=== PATIENT | female | born 1970 | race African-American/Black ===

== ENCOUNTER 2022-10-07 08:23 | Emergency (ER) | payer MEDICAID ==
[~2022-10-07] VITALS: Ht 170.2 cm; Wt 73.0 kg
[2022-10-07 08:20] VITALS: RESP 14
[2022-10-07 08:30] VITALS: PULSE 97; RESP 24; O2SAT 99
[2022-10-07] MEDS ORDERED: IPRATROPIUM BROMIDE (0.02%) 0.5MG/2.5ML NEB HHN STA (08:54)
[2022-10-07] MEDS ORDERED: ALBUTEROL (0.083%) 2.5MG/3ML NEB HHN STA (08:54)
[2022-10-07] MEDS ORDERED: MAGNESIUM 2 G PREMIX 50 ML IV STA (08:54)
[2022-10-07] MEDS ORDERED: METHYLPREDNISOLONE SOD SUCC 125MG/2ML (ACT-O-VIAL) IV STA (08:54)
[2022-10-07] MEDS ORDERED: MORPHINE SULFATE 4 MG/ML CPJ (NOT FOR IM USE) IV ONE (09:00)
[2022-10-07 09:06] LABS: CHLORIDE 100 mEq/L (98-107); INDEX HEMOLYSI 3 (1-3); INDEX ICTERIC 1 (1-4); INDEX LIPEMIC 1 (1-3); POTASSIUM 3.5 mEq/L (3.5-5.1); SODIUM 140 mEq/L (136-145)
[2022-10-07 09:10] LABS: BASOPHILS % 0.7 % (0.0-2.0); EOSINOPHILS % 1.6 % (0.0-5.0); HEMATOCRIT. 36.6 % (36.0-48.0); HEMOGLOBIN. 11.3 g/dL (12.0-16.0); LYMPHOCYTES % 26.1 % (20.0-50.0); MEAN CORPUSCULAR HEMOGLOBIN 25.5 pg (28.0-32.0); MEAN CORPUSCULAR HGB CONC 30.8 g/dL (31.0-37.0); MEAN CORPUSCULAR VOLUME 82.7 fL (81.0-99.0); MEAN PLATELET VOLUME 9.4 fl (7.4-10.4); MONOCYTES % 9.4 % (2.0-8.0); NEUTROPHILS % 62.2 % (40.0-76.0); PLATELET 248 x1000/uL (130-400); RED BLOOD CELL COUNT 4.43 mill/uL (4.2-5.4); RED CELL DISTRIBUTION WIDTH 15.6 % (11.6-14.6); WHITE BLOOD COUNT 7.2 x1000/uL (4.5-11.0)
[2022-10-07] MEDS ORDERED: METHYLPREDNISOLONE SOD SUCC 125MG VIAL IV NR (09:15)
[2022-10-07 09:17] LABS: ALANINE AMINOTRANSFERASE 15 IU/L (13-61); ALBUMIN 3.4 g/dL (3.4-5.0); ASPARTATE AMINOTRANSFERASE 18 IU/L (15-37); BILIRUBIN TOTAL 0.2 mg/dL (0.1-1.0); CALCIUM 8.9 mg/dL (8.5-10.1); CARBON DIOXIDE 37 mEq/L (21-32); CREATININE 0.6 mg/dL (0.6-1.3); GLUCOSE 129 mg/dL (70-105); NT PRO B-TYPE NATRIURETIC PEP 58 pg/mL (5-125); PROTEIN TOTAL 6.7 g/dL (6.0-8.3); TROPONIN I HIGH SENSITIVITY 4 ng/L (<54); UREA NITROGEN BLOOD 6 mg/dL (7-21)
[2022-10-07] MEDS ORDERED: IPRATROPIUM BROMIDE (0.02%) 0.5MG/2.5ML NEB ONE (11:14)
[2022-10-07] MEDS ORDERED: ALBUTEROL (0.083%) 2.5MG/3ML NEB ONE (11:14)
[2022-10-07 11:20] VITALS: PULSE 112; RESP 24; O2SAT 99
[2022-10-07 12:00] VITALS: BP 140/92; PULSE 90; RESP 16; TEMP 98.4
== END 2022-10-07 12:01 | disposition short-term general hospital (02) ==
LOC: ER 09:45
DX: J44.1 Chronic obstructive pulmonary disease with (acute) exacerbation (principal); I10 Essential (primary) hypertension; Z20.822 Contact with and (suspected) exposure to COVID-19
CPT/HCPCS: 80053; 83880; 85025; 84484; 36415; 71045; 93005; 94644; 96365; 96375; 99285; 87426; J3475; J2930; J2270; Z7610 ×3; C9803

== ENCOUNTER 2023-05-02 12:25 | Emergency (ER) | payer MEDICAID ==
[~2023-05-02] VITALS: Ht 162.6 cm; Wt 72.0 kg
[~2023-05-02 12:25] MED LIST: ALBU6.7H15 INH; AZEL205. BOTHNSTRLS; MELA1TAB51 PO; METO-396 PO; P20 MT
[2023-05-02] MEDS: IPRATROPIUM BROMIDE (0.02%) 0.5MG/2.5ML NEB HHN STA (13:00)
[2023-05-02] MEDS: ALBUTEROL (0.083%) 2.5MG/3ML NEB HHN STA (13:00)
[2023-05-02 13:20] VITALS: PULSE 108; RESP 24; O2SAT 99
[2023-05-02] MEDS: DEXAMETHASONE 10 MG/ML VIAL IV ONE (13:24)
[2023-05-02 13:30] LABS: BASOPHILS % 0.8 % (0.0-2.0); DIFFERENTIAL COMMENT 0; HEMATOCRIT. 36.7 % (36.0-48.0); HEMOGLOBIN. 10.9 g/dL (12.0-16.0); MEAN CORPUSCULAR HEMOGLOBIN 24.2 pg (28.0-32.0); MEAN CORPUSCULAR HGB CONC 29.8 g/dL (31.0-37.0); MEAN CORPUSCULAR VOLUME 81.3 fL (81.0-99.0); MEAN PLATELET VOLUME 9.3 fl (7.4-10.4); MONOCYTES % 7.4 % (2.0-8.0); NEUTROPHILS % 73.8 % (40.0-76.0); PLATELET 260 x1000/uL (130-400); RED BLOOD CELL COUNT 4.51 mill/uL (4.2-5.4); RED CELL DISTRIBUTION WIDTH 15.8 % (11.6-14.6); WHITE BLOOD COUNT 6.2 x1000/uL (4.5-11.0)
[2023-05-02 13:39] LABS: ALANINE AMINOTRANSFERASE < 7 IU/L (10-49); ALBUMIN 4.2 g/dL (3.2-4.8); ASPARTATE AMINOTRANSFERASE 17 IU/L (<34); BILIRUBIN TOTAL 0.3 mg/dL (0.1-1.0); CALCIUM 9.2 mg/dL (8.7-10.4); CARBON DIOXIDE 34 mEq/L (21-32); CHLORIDE 102 mEq/L (98-107); CREATININE 0.6 mg/dL (0.6-1.0); GLUCOSE 110 mg/dL (70-105); PROTEIN TOTAL 7.5 g/dL (6.0-8.3); SODIUM 141 mEq/L (136-145); UREA NITROGEN BLOOD 6 mg/dL (9-23)
[2023-05-02 13:57] LABS: TROPONIN I HIGH SENSITIVITY < 4 ng/L (3.0-34)
[2023-05-02] MEDS: MAGNESIUM/ALUMINUM HYDROXIDE/SIMETHICONE 30ML UDC PO ONE (14:11)
[2023-05-02] MEDS: KETOROLAC 15MG/ML VIAL IV ONE (14:11)
[2023-05-02] MEDS: FAMOTIDINE 20MG/2ML VIAL IV ONE (14:11)
[2023-05-02] MEDS: MORPHINE SULFATE 4 MG/ML INJ (FOR IV/IM USE) IV ONE (15:25)
[2023-05-02 17:30] VITALS: BP 137/98; PULSE 110; RESP 17; TEMP 98
== END 2023-05-02 17:50 | disposition short-term general hospital (02) ==
LOC: ER 12:25 → CANBEDREQ 22:54
DX: J44.1 Chronic obstructive pulmonary disease with (acute) exacerbation (principal); B02.29 Other postherpetic nervous system involvement; I10 Essential (primary) hypertension; Z20.822 Contact with and (suspected) exposure to COVID-19
CPT/HCPCS: 80053; 83880; 85025; 84484; 36415; 71045; 93005; 94644; 96374; 96375; 99285; 87426; J1100; J3490; J1885; J2270; Z7610 ×6

== ENCOUNTER 2024-04-20 14:06 | Inpatient (IN) | payer MEDICARE, MEDICAID ==
[~2024-04-20] VITALS: Ht 167.6 cm; Wt 54.4 kg
[~2024-04-20 14:06] MED LIST changes: +ALBU18HF2 IH; -ALBU6.7H15 INH; +AMLO5TAB88 MT; -AZEL205. BOTHNSTRLS; +AZEL205.2 BOTHNSTRLS; +FLUT12AE3 INH
[2024-04-20] MEDS: NALOXONE HCL 1MG/ML 2ML VIAL ONE (14:25)
[2024-04-20 14:43] LABS: BASOPHILS % 0.6 % (0.0-2.0); CHLORIDE 93 mEq/L (98-107); DIFFERENTIAL COMMENT 0; EOSINOPHILS % 3.9 % (0.0-5.0); HEMATOCRIT. 37.1 % (36.0-48.0); HEMOGLOBIN. 10.7 g/dL (12.0-16.0); MEAN CORPUSCULAR HEMOGLOBIN 25.5 pg (28.0-32.0); MEAN CORPUSCULAR HGB CONC 28.7 g/dL (31.0-37.0); MEAN CORPUSCULAR VOLUME 88.8 fL (81.0-99.0); MONOCYTES % 9.4 % (2.0-8.0); NEUTROPHILS % 58.1 % (40.0-76.0); PLATELET 195 x1000/uL (130-400); POTASSIUM 5.1 mEq/L (3.5-5.1); RED BLOOD CELL COUNT 4.17 mill/uL (4.2-5.4); RED CELL DISTRIBUTION WIDTH 14.9 % (11.6-14.6); SODIUM 138 mEq/L (136-145); WHITE BLOOD COUNT 5.7 x1000/uL (4.5-11.0)
[2024-04-20 14:45] LABS: CALCIUM 8.9 mg/dL (8.7-10.4)
[2024-04-20 14:47] LABS: CARBON DIOXIDE > 40 mEq/L (21-32)
[2024-04-20 14:49] LABS: CREATININE 0.8 mg/dL (0.6-1.0); GLUCOSE 147 mg/dL (70-105); UREA NITROGEN BLOOD 16 mg/dL (9-23)
[2024-04-20 14:51] LABS: TROPONIN I HIGH SENSITIVITY < 4 ng/L (3.0-34)
[2024-04-20] MEDS: IBUPROFEN 400MG TABLET PO ONE (17:23)
[2024-04-20 18:11] LABS: CLARITY URINE CLEAR (CLEAR); COLOR URINE YELLOW (YELLOW); GLUCOSE URINE NEGATIVE (NEGATIVE); KETONES URINE NEGATIVE (NEGATIVE); LEUKOCYTE ESTERASE URINE NEGATIVE (NEGATIVE); NITRITE URINE NEGATIVE (NEGATIVE); OCCULT BLOOD URINE NEGATIVE (NEGATIVE); PH URINE 5.5 (4.5-8.0); PROTEIN URINE 1+ (NEGATIVE); SPECIFIC GRAVITY URINE 1.016 (1.005-1.030); UROBILINOGEN URINE 0.2 E.U./dL (0.2-1.0)
[2024-04-20] MEDS ORDERED: ACETAMINOPHEN 325MG TABLET PO PRN (18:15)
[2024-04-20] MEDS ORDERED: IPRATROPIUM/ALBUTEROL 0.5-3(2.5)MG/3ML NEB HHN PRN (18:15)
[2024-04-20] MEDS ORDERED: ONDANSETRON HCL 4MG/2ML INJ IV PRN (18:15)
[2024-04-20] MEDS ORDERED: DOCUSATE SODIUM 100MG CAPSULE PO PRN (18:15)
[2024-04-20] MEDS ORDERED: MELATONIN 3MG TABLET PO PRN (18:15)
[2024-04-20 18:18] LABS: *AMPHETAMINES SCREEN URINE NEGATIVE (NEGATIVE); *BARBITURATES SCREEN URINE NEGATIVE (NEGATIVE); *BENZODIAZEPINES SCREEN URINE NEGATIVE (NEGATIVE); *COCAINE SCREEN URINE NEGATIVE (NEGATIVE); METHADONE URINE SCREEN NEGATIVE (NEGATIVE); OPIATES URINE SCREEN PRESUMPTIVE POSITIVE (NEGATIVE)
[2024-04-20 18:19] LABS: CANNABINOID URINE SCREEN PRESUMPTIVE POSITIVE (NEGATIVE); ECSTASY MDMA SCREEN URINE NEGATIVE (NEGATIVE); PHENCYCLIDINE URINE SCREEN NEGATIVE (NEGATIVE)
[2024-04-20 18:23] LABS: BACTERIA URINE TRACE; RBC URINE 0-2 /hpf (0-2); SQUAMOUS EPITHELIAL CELL URINE FEW /lpf (RARE/1+); WBC URINE 0-2 /hpf (0-2)
[2024-04-20 18:55] LABS: BG BASE EXCESS 13.7 mmol/L (-2.0-3.0); BG DEOXYHEMOGLOBIN 0.3 % (0.0-5.0); BG FRACTION INSPIRED OXYGEN 100; BG HCO3 ACT 47.6 mmol/L (21.0-28.0); BG METHEMOGLOBIN 0.2 % (0.5-1.5); BG OXYGEN SATURATION 99.7 % (94.0-98.0); BG OXYHEMOGLOBIN 96.5 % (94.0-98.0); BG PCO2 143.7 mmHg (32.0-45.0); BG PH 7.138 (7.350-7.450); BG PO2 206.3 mmHg (83.0-108.0); BG SAMPLE SITE RIGHT RADIAL; BG TOTAL HEMOGLOBIN 11.7 g/dL (12.0-16.0); BG VENT MODE MASK - NRB
[2024-04-20 19:41] LABS: IRON 35 ug/dL (50-170)
[2024-04-20 19:42] LABS: LDL CHOLESTEROL 53 mg/dL (5-100); TRIGLYCERIDE 62 mg/dL (0-150)
[2024-04-20 19:43] LABS: ALBUMIN 4.1 g/dL (3.2-4.8); CHOLESTEROL 131 mg/dL (<200); HDL CHOLESTEROL 54 mg/dL (>65)
[2024-04-20 19:44] LABS: PHOSPHORUS 5.3 mg/dL (2.5-4.9); PREALBUMIN 15.8 mg/dl (10.0-40.0); TOTAL IRON BINDING CAPACITY 200 ug/dl (250-425)
[2024-04-20 19:46] LABS: FERRITIN 39 ng/mL (10-291)
[2024-04-20 19:47] LABS: FOLIC ACID (FOLATE) SERUM 7.23 ng/mL (>5.38); T4 FREE 1.02 ng/dL (0.89-1.76); THYROID STIMULATING HORMONE 1.98 uIU/mL (0.55-4.78)
[2024-04-20 19:48] LABS: VITAMIN B12 SERUM 471 pg/mL (211-911)
[2024-04-20 20:00] VITALS: BP 122/85; PULSE 82; RESP 20; TEMP 35.9; O2SAT 96
[2024-04-20 20:19] LABS: ETHANOL BLOOD < 10 mg/dL (<10)
[2024-04-20] MEDS: FAMOTIDINE 20MG TABLET PO SCH (21:00)
[2024-04-20 22:00] VITALS: BP 122/85; PULSE 82; RESP 20; TEMP 35.9
[2024-04-20] MEDS: ALBUTEROL (0.083%) 2.5MG/3ML NEB HHN SCH (22:15)
[2024-04-20 22:16] VITALS: PULSE 89; RESP 16; O2SAT 95
[2024-04-20] MEDS: BUDESONIDE 0.5MG/2ML NEB HHN SCH (22:16)
[2024-04-20] MEDS ORDERED: AZEL205.2 NS (23:30)
[2024-04-20] MEDS ORDERED: AMLO5TAB88 PO (23:30)
[2024-04-20] MEDS ORDERED: PRED15SO74 MT (23:30)
[2024-04-20] MEDS ORDERED: METO-396 PO (23:30)
[2024-04-20] MEDS ORDERED: FLUT1AER5 INH (23:30)
[2024-04-20] MEDS ORDERED: ALBU4TAB6 MT (23:30)
[2024-04-20 23:38] LABS: CREATINE KINASE 122 IU/L (34-145); TROPONIN I HIGH SENSITIVITY 5 ng/L (3.0-34)
[2024-04-21] VITALS (9 sets, daily range): BP systolic 126–155; BP diastolic 59–96; PULSE 63–106; RESP 16–24; TEMP 35.9–36.9; O2SAT 96–100
[2024-04-21 06:04] LABS: HEMATOCRIT 36.5 % (36.0-48.0); MEAN CORPUSCULAR HEMOGLOBIN 25.9 pg (28.0-32.0); MEAN CORPUSCULAR VOLUME 86.3 fL (81.0-99.0); PLATELET 180 x1000/uL (130-400); RED BLOOD CELL COUNT 4.23 mill/uL (4.2-5.4); RED CELL DISTRIBUTION WIDTH 14.2 % (11.6-14.6); WHITE BLOOD COUNT 9.8 x1000/uL (4.5-11.0)
[2024-04-21 06:08] LABS: CALCIUM 9.5 mg/dL (8.7-10.4); CHLORIDE 91 mEq/L (98-107); POTASSIUM 4.5 mEq/L (3.5-5.1); SODIUM 138 mEq/L (136-145)
[2024-04-21 06:14] LABS: GLUCOSE 92 mg/dL (70-105); UREA NITROGEN BLOOD 11 mg/dL (9-23)
[2024-04-21 06:16] LABS: CREATINE KINASE 138 IU/L (34-145)
[2024-04-21 06:52] LABS: CARBON DIOXIDE > 40 mEq/L (21-32); CREATININE 0.5 mg/dL (0.6-1.0); TROPONIN I HIGH SENSITIVITY < 4 ng/L (3.0-34)
[2024-04-21] MEDS: METOPROLOL TARTRATE 25MG TABLET PO SCH (09:20)
[2024-04-21] MEDS: AMLODIPINE 5MG TABLET PO SCH (09:20)
[2024-04-21] MEDS: DEXT 5%/0.9% NACL 1,000 ML IV SCH (10:20)
[2024-04-21] MEDS ORDERED: NALOXONE HCL 1MG/ML 2ML VIAL IV ONE (10:30)
[2024-04-21] MEDS ORDERED: TRAMADOL 50MG TABLET PO PRN (10:45)
[2024-04-21] MEDS: ACETAMINOPHEN 325MG TABLET PO PRN (20:01)
[2024-04-22] VITALS (9 sets, daily range): BP systolic 110–168; BP diastolic 72–112; PULSE 85–101; RESP 18–20; TEMP 36.1–36.8; O2SAT 98–100
[2024-04-22 05:52] LABS: CHLORIDE 95 mEq/L (98-107); SODIUM 140 mEq/L (136-145)
[2024-04-22 05:53] LABS: CALCIUM 9.6 mg/dL (8.7-10.4); CARBON DIOXIDE 38 mEq/L (21-32)
[2024-04-22 05:58] LABS: CREATININE 0.5 mg/dL (0.6-1.0); GLUCOSE 104 mg/dL (70-105); UREA NITROGEN BLOOD 5 mg/dL (9-23)
[2024-04-22 06:24] LABS: HEMATOCRIT 39.4 % (36.0-48.0); HEMOGLOBIN 11.6 g/dL (12.0-16.0); MEAN CORPUSCULAR HEMOGLOBIN 24.9 pg (28.0-32.0); MEAN CORPUSCULAR HGB CONC 29.5 g/dL (31.0-37.0); MEAN CORPUSCULAR VOLUME 84.4 fL (81.0-99.0); PLATELET 171 x1000/uL (130-400); RED BLOOD CELL COUNT 4.66 mill/uL (4.2-5.4); RED CELL DISTRIBUTION WIDTH 14.5 % (11.6-14.6)
[2024-04-22] MEDS ORDERED: SODIUM CHLORIDE 0.9% 1,000 ML IV SCH (08:00)
[2024-04-22 14:56] LABS: BG BASE EXCESS 13.3 mmol/L (-2.0-3.0); BG CARBOXYHEMOGLOBIN 0.6 % (0.5-1.5); BG DEOXYHEMOGLOBIN 2.1 % (0.0-5.0); BG FRACTION INSPIRED OXYGEN 32; BG HCO3 ACT 40.6 mmol/L (21.0-28.0); BG METHEMOGLOBIN 0.3 % (0.5-1.5); BG OXYGEN SATURATION 97.9 % (94.0-98.0); BG PCO2 67.1 mmHg (32.0-45.0); BG PO2 95.9 mmHg (83.0-108.0); BG SAMPLE SITE RIGHT RADIAL; BG TOTAL HEMOGLOBIN 11.5 g/dL (12.0-16.0); BG VENT MODE NASAL CANNULA
[2024-04-22] MEDS: CLONIDINE 0.1MG TABLET PO PRN (17:40)
[2024-04-23] VITALS (11 sets, daily range): BP systolic 108–137; BP diastolic 61–87; PULSE 80–106; RESP 18–24; TEMP 36.5–36.7; O2SAT 98–100
[2024-04-23 06:23] LABS: CARBON DIOXIDE 39 mEq/L (21-32); CHLORIDE 95 mEq/L (98-107); POTASSIUM 3.7 mEq/L (3.5-5.1); SODIUM 139 mEq/L (136-145)
[2024-04-23 06:24] LABS: CALCIUM 9.3 mg/dL (8.7-10.4)
[2024-04-23 06:29] LABS: CREATININE 0.6 mg/dL (0.6-1.0); GLUCOSE 85 mg/dL (70-105); HEMATOCRIT 34.2 % (36.0-48.0); HEMOGLOBIN 10.1 g/dL (12.0-16.0); MEAN CORPUSCULAR HEMOGLOBIN 24.9 pg (28.0-32.0); MEAN CORPUSCULAR HGB CONC 29.6 g/dL (31.0-37.0); PLATELET 172 x1000/uL (130-400); RED BLOOD CELL COUNT 4.07 mill/uL (4.2-5.4); RED CELL DISTRIBUTION WIDTH 14.3 % (11.6-14.6); UREA NITROGEN BLOOD 7 mg/dL (9-23); WHITE BLOOD COUNT 5.8 x1000/uL (4.5-11.0)
[2024-04-23] MEDS ORDERED: FLUT12HF3 * (13:16)
[2024-04-23] MEDS ORDERED: METO25TA6 PO (13:16)
[2024-04-23] MEDS ORDERED: AMLO-287 MT (13:16)
[2024-04-24] VITALS: BP 110/74; PULSE 87; RESP 18; TEMP 36.7; O2SAT 100
[2024-04-24 01:23] VITALS: PULSE 90; RESP 20
== END 2024-04-24 02:05 | disposition home health service (06) | DRG 917 ==
LOC: ER 14:06 → EDBEDREQ 17:44 → EDBEDREQTM 17:44 → 8WST 20:44
PROVIDERS: ADMIT Hospitalist; ATTEND Hospitalist
DX: T40.2X1A Poisoning by other opioids, accidental (unintentional), initial encounter (principal); G92.8 Other toxic encephalopathy; J96.22 Acute and chronic respiratory failure with hypercapnia; E87.4 Mixed disorder of acid-base balance; D64.9 Anemia, unspecified; I10 Essential (primary) hypertension; F17.210 Nicotine dependence, cigarettes, uncomplicated; G89.29 Other chronic pain; Z99.81 Dependence on supplemental oxygen; Z79.899 Other long term (current) drug therapy; Z85.3 Personal history of malignant neoplasm of breast; Z90.12 Acquired absence of left breast and nipple; Y92.89 Other specified places as the place of occurrence of the external cause
CPT/HCPCS: 36415; 36600; 71045; 80048; 80061; 80305; 80320; 81003; 82040; 82375; 82550; 82607; 82728; 82746; 82805; 83036; 83540; 83550; 83735; 84100; 84134; 84439; 84443; 84484; 85025; 85027; 93005; 93970; 94070; 94640; 94664; 99285; J2310; J7626; G0480

== ENCOUNTER 2024-06-30 11:14 | Inpatient (IN) | payer MEDICARE, MEDICAID ==
[~2024-06-30] VITALS: Ht 157.5 cm; Wt 60.8 kg
[~2024-06-30 11:14] MED LIST changes: -ALBU18HF2 IH; -AZEL205.2 BOTHNSTRLS; -FLUT12AE3 INH; +FLUT12HF3 *; -MELA1TAB51 PO; -METO-396 PO; +METO25TA6 PO; -P20 MT
[2024-06-30] MEDS: TETRACAINE 0.5% OPHTH DROPS 4ML BOTHEYE ONE (11:45)
[2024-06-30] MEDS: FLUORESCEIN SODIUM 1MG/STRIP BOTHEYE ONE (11:45)
[2024-06-30 12:06] LABS: BASOPHILS % 1.1 % (0.0-2.0); EOSINOPHILS % 4.7 % (0.0-5.0); HEMATOCRIT. 36.9 % (36.0-48.0); HEMOGLOBIN. 11.3 g/dL (12.0-16.0); LYMPHOCYTES % 23.5 % (20.0-50.0); MEAN CORPUSCULAR HEMOGLOBIN 25.4 pg (28.0-32.0); MEAN CORPUSCULAR HGB CONC 30.7 g/dL (31.0-37.0); MEAN CORPUSCULAR VOLUME 82.8 fL (81.0-99.0); MEAN PLATELET VOLUME 9.3 fl (7.4-10.4); MONOCYTES % 9.9 % (2.0-8.0); NEUTROPHILS % 60.8 % (40.0-76.0); PLATELET 199 x1000/uL (130-400); RED BLOOD CELL COUNT 4.45 mill/uL (4.2-5.4); RED CELL DISTRIBUTION WIDTH 13.3 % (11.6-14.6); WHITE BLOOD COUNT 5.9 x1000/uL (4.5-11.0)
[2024-06-30 12:11] LABS: CARBON DIOXIDE 37 mEq/L (21-32); CHLORIDE 97 mEq/L (98-107); POTASSIUM 4.2 mEq/L (3.5-5.1); SODIUM 140 mEq/L (136-145)
[2024-06-30 12:17] LABS: CREATININE 0.8 mg/dL (0.6-1.0); GLUCOSE 98 mg/dL (70-105); UREA NITROGEN BLOOD 9 mg/dL (9-23)
[2024-06-30] MEDS: FLUTICASONE PROPIONATE 50MCG/SPRAY BOTTLE BOTHNSTRLS STA (12:27)
[2024-06-30] MEDS: MORPHINE SULFATE 4 MG/ML INJ (FOR IV/IM USE) IV ONE (12:40)
[2024-06-30] MEDS ORDERED: METHYLPREDNISOLONE SOD SUCC 125MG/2ML (ACT-O-VIAL) IV STA (12:44)
[2024-06-30] MEDS: VALACYCLOVIR HCL 500MG TABLET PO STA (12:52)
[2024-06-30 12:55] LABS: TROPONIN I HIGH SENSITIVITY < 4 ng/L (3.0-34)
[2024-06-30 13:19] VITALS: PULSE 90; RESP 22; O2SAT 97
[2024-06-30] MEDS: ALBUTEROL (0.083%) 2.5MG/3ML NEB HHN STA (13:19)
[2024-06-30] MEDS: IPRATROPIUM BROMIDE (0.02%) 0.5MG/2.5ML NEB HHN STA (13:19)
[2024-06-30] MEDS: METHYLPREDNISOLONE SOD SUCC 125MG/2ML (ACT-O-VIAL) IV SCH (14:06)
[2024-06-30] MEDS ORDERED: CLONIDINE 0.1MG TABLET PO PRN (15:15)
[2024-06-30] MEDS ORDERED: DOCUSATE SODIUM 100MG CAPSULE PO PRN (15:15)
[2024-06-30] MEDS ORDERED: ONDANSETRON HCL 4MG/2ML INJ IV PRN (15:15)
[2024-06-30] MEDS ORDERED: ACETAMINOPHEN 325MG TABLET PO PRN (15:15)
[2024-06-30] MEDS ORDERED: IPRATROPIUM/ALBUTEROL 0.5-3(2.5)MG/3ML NEB HHN PRN (15:15)
[2024-06-30 16:00] VITALS: BP 162/101; PULSE 116; RESP 20; TEMP 35.8; O2SAT 94
[2024-06-30] MEDS: CEFTRIAXONE 1GM/50ML 50 ML IV SCH (16:18)
[2024-06-30] MEDS ORDERED: DEXTROSE 50% WATER 50ML SYRINGE IV PRN (16:30)
[2024-06-30 16:41] VITALS: BP 162/101; PULSE 116; RESP 22; TEMP 35.9
[2024-06-30] MEDS: BLOOD SUGAR DIAGNOSTIC STRIP TEST SCH (16:45)
[2024-06-30] MEDS: PANTOPRAZOLE SODIUM 40 MG/VIAL IV SCH (17:51)
[2024-06-30 18:27] LABS: PHOSPHORUS 3.6 mg/dL (2.5-4.9)
[2024-06-30 18:42] LABS: HEPATITIS B SURFACE ANTIGEN NEGATIVE (Negative)
[2024-06-30 18:43] LABS: LACTIC ACID 2.7 mmol/L (0.4-2.0)
[2024-06-30] MEDS: AZITHROMYCIN 500MG/250ML 250 ML IV SCH (18:59)
[2024-06-30 19:03] LABS: HEPATITIS C AB NON REACTIVE (Neg) (Negative)
[2024-06-30 20:00] VITALS: BP 124/84; PULSE 103; RESP 18; TEMP 36.4; O2SAT 99
[2024-06-30] MEDS: ACETAMINOPHEN 325MG TABLET PO PRN (21:02)
[2024-06-30] MEDS: AMLODIPINE 10MG TABLET PO SCH (21:04)
[2024-06-30] MEDS: MAGNESIUM 4 G PREMIX 100 ML IV NR (21:08)
[2024-06-30] MEDS: METHYLPREDNISOLONE SOD SUCC 40MG/ML (ACT-O-VIAL) IV SCH (21:08)
[2024-06-30] MEDS: ENOXAPARIN 40MG/0.4ML SYR SUBCUT SCH (21:10)
[2024-06-30 21:39] VITALS: PULSE 88; RESP 20
[2024-06-30] MEDS: IPRATROPIUM/ALBUTEROL 0.5-3(2.5)MG/3ML NEB HHN SCH (21:39)
[2024-06-30 23:45] LABS: TROPONIN I HIGH SENSITIVITY 4 ng/L (3.0-34)
[2024-06-30 23:46] LABS: CREATINE KINASE 266 IU/L (34-145)
[2024-07-01] VITALS (10 sets, daily range): BP systolic 105–132; BP diastolic 63–88; PULSE 85–108; RESP 16–20; TEMP 35.8–36.8; O2SAT 85–98
[2024-07-01 07:01] LABS: BASOPHILS % 0.1 % (0.0-2.0); DIFFERENTIAL COMMENT 0; HEMATOCRIT. 37.4 % (36.0-48.0); HEMOGLOBIN. 11.3 g/dL (12.0-16.0); LYMPHOCYTES % 13.3 % (20.0-50.0); MEAN CORPUSCULAR HGB CONC 30.3 g/dL (31.0-37.0); MEAN CORPUSCULAR VOLUME 82.3 fL (81.0-99.0); MEAN PLATELET VOLUME 10.7 fl (7.4-10.4); MONOCYTES % 2.1 % (2.0-8.0); NEUTROPHILS % 84.5 % (40.0-76.0); PLATELET 196 x1000/uL (130-400); RED BLOOD CELL COUNT 4.54 mill/uL (4.2-5.4); RED CELL DISTRIBUTION WIDTH 13.8 % (11.6-14.6); WHITE BLOOD COUNT 3.7 x1000/uL (4.5-11.0)
[2024-07-01 07:20] LABS: CARBON DIOXIDE 36 mEq/L (21-32); CHLORIDE 95 mEq/L (98-107); POTASSIUM 4.2 mEq/L (3.5-5.1); SODIUM 139 mEq/L (136-145)
[2024-07-01 07:21] LABS: CALCIUM 9.8 mg/dL (8.7-10.4)
[2024-07-01 07:24] LABS: CREATINE KINASE MB FRACTION 6.7 ng/mL (0.5-3.6)
[2024-07-01 07:26] LABS: CREATINE KINASE 247 IU/L (34-145); CREATININE 0.7 mg/dL (0.6-1.0); GLUCOSE 137 mg/dL (70-105); TRIGLYCERIDE 51 mg/dL (0-150); UREA NITROGEN BLOOD 8 mg/dL (9-23)
[2024-07-01 07:27] LABS: LDL CHOLESTEROL 49 mg/dL (5-100)
[2024-07-01 07:28] LABS: CHOLESTEROL 127 mg/dL (<200); HDL CHOLESTEROL 70 mg/dL (>65); T4 FREE 1.29 ng/dL (0.89-1.76); THYROID STIMULATING HORMONE 0.21 uIU/mL (0.55-4.78)
[2024-07-01 07:44] LABS: CLARITY URINE CLEAR (CLEAR); COLOR URINE YELLOW (YELLOW); GLUCOSE URINE NEGATIVE (NEGATIVE); KETONES URINE NEGATIVE (NEGATIVE); LEUKOCYTE ESTERASE URINE NEGATIVE (NEGATIVE); NITRITE URINE NEGATIVE (NEGATIVE); OCCULT BLOOD URINE NEGATIVE (NEGATIVE); PH URINE 8.5 (4.5-8.0); PROTEIN URINE NEGATIVE (NEGATIVE); SPECIFIC GRAVITY URINE 1.009 (1.005-1.030); UROBILINOGEN URINE 0.2 E.U./dL (0.2-1.0)
[2024-07-01 07:51] LABS: TROPONIN I HIGH SENSITIVITY < 4 ng/L (3.0-34)
[2024-07-01 08:27] LABS: *AMPHETAMINES SCREEN URINE NEGATIVE (NEGATIVE); *BARBITURATES SCREEN URINE NEGATIVE (NEGATIVE); *BENZODIAZEPINES SCREEN URINE NEGATIVE (NEGATIVE); *COCAINE SCREEN URINE NEGATIVE (NEGATIVE); CANNABINOID URINE SCREEN PRESUMPTIVE POSITIVE (NEGATIVE); ECSTASY MDMA SCREEN URINE NEGATIVE (NEGATIVE); METHADONE URINE SCREEN NEGATIVE (NEGATIVE); OPIATES URINE SCREEN PRESUMPTIVE POSITIVE (NEGATIVE); PHENCYCLIDINE URINE SCREEN NEGATIVE (NEGATIVE)
[2024-07-01 10:11] LABS: BG BASE EXCESS 8.8 mmol/L (-2.0-3.0); BG CARBOXYHEMOGLOBIN 1.9 % (0.5-1.5); BG DEOXYHEMOGLOBIN 6.7 % (0.0-5.0); BG FRACTION INSPIRED OXYGEN 30; BG HCO3 ACT 34.7 mmol/L (21.0-28.0); BG METHEMOGLOBIN 0.3 % (0.5-1.5); BG OXYGEN SATURATION 93.1 % (94.0-98.0); BG OXYHEMOGLOBIN 91.1 % (94.0-98.0); BG PCO2 53.8 mmHg (32.0-45.0); BG PH 7.428 (7.350-7.450); BG PO2 66.3 mmHg (83.0-108.0); BG SAMPLE SITE RIGHT BRACHIAL; BG TOTAL HEMOGLOBIN 12.1 g/dL (12.0-16.0); BG VENT MODE NASAL CANNULA
[2024-07-01] MEDS: KETOROLAC 30MG/ML VIAL IV NR (12:47)
[2024-07-01] MEDS: AZITHROMYCIN 500MG/250ML 250 ML IV SCH (18:24)
[2024-07-01] MEDS: KETOROLAC 15MG/ML VIAL IV PRN (22:19)
[2024-07-02] VITALS (9 sets, daily range): BP systolic 110–130; BP diastolic 70–90; PULSE 80–124; RESP 16–20; TEMP 36.6–36.8; O2SAT 96–100
[2024-07-02 06:48] LABS: HEMATOCRIT 38.6 % (36.0-48.0); HEMOGLOBIN 11.9 g/dL (12.0-16.0); MEAN CORPUSCULAR HEMOGLOBIN 24.8 pg (28.0-32.0); MEAN CORPUSCULAR HGB CONC 30.7 g/dL (31.0-37.0); MEAN CORPUSCULAR VOLUME 80.8 fL (81.0-99.0); PLATELET 196 x1000/uL (130-400); RED BLOOD CELL COUNT 4.78 mill/uL (4.2-5.4); RED CELL DISTRIBUTION WIDTH 13.5 % (11.6-14.6); WHITE BLOOD COUNT 6.8 x1000/uL (4.5-11.0)
[2024-07-02 07:14] LABS: CALCIUM 9.6 mg/dL (8.7-10.4); CHLORIDE 96 mEq/L (98-107); POTASSIUM 4.4 mEq/L (3.5-5.1); SODIUM 139 mEq/L (136-145)
[2024-07-02 07:15] LABS: CARBON DIOXIDE 33 mEq/L (21-32)
[2024-07-02 07:20] LABS: CREATININE 0.8 mg/dL (0.6-1.0); GLUCOSE 119 mg/dL (70-105); UREA NITROGEN BLOOD 18 mg/dL (9-23)
[2024-07-02] MEDS: CLOBETASOL 0.05 % CREAM 15GM TOP SCH (21:00)
[2024-07-03] VITALS (8 sets, daily range): BP systolic 107–144; BP diastolic 73–91; PULSE 81–120; RESP 17–18; TEMP 36.4–36.9; O2SAT 95–100
[2024-07-03] MEDS: AZITHROMYCIN 500 MG TABLET PO SCH (00:07)
[2024-07-03 06:38] LABS: CARBON DIOXIDE 33 mEq/L (21-32); CHLORIDE 98 mEq/L (98-107); POTASSIUM 4.2 mEq/L (3.5-5.1); SODIUM 139 mEq/L (136-145)
[2024-07-03 06:40] LABS: CALCIUM 9.3 mg/dL (8.7-10.4)
[2024-07-03 06:44] LABS: CREATININE 0.7 mg/dL (0.6-1.0); GLUCOSE 129 mg/dL (70-105); UREA NITROGEN BLOOD 21 mg/dL (9-23)
[2024-07-03 06:53] LABS: HEMATOCRIT 38.9 % (36.0-48.0); MEAN CORPUSCULAR HEMOGLOBIN 24.9 pg (28.0-32.0); MEAN CORPUSCULAR HGB CONC 30.8 g/dL (31.0-37.0); MEAN CORPUSCULAR VOLUME 80.9 fL (81.0-99.0); PLATELET 194 x1000/uL (130-400); RED BLOOD CELL COUNT 4.81 mill/uL (4.2-5.4); RED CELL DISTRIBUTION WIDTH 13.7 % (11.6-14.6); WHITE BLOOD COUNT 6.6 x1000/uL (4.5-11.0)
[2024-07-03 16:15] LABS: INFLUENZA TYPE A Presumptive Negative (Pres. Neg.)
[2024-07-03 16:16] LABS: INFLUENZA TYPE B Presumptive Negative (Pres. Neg.); RESPIRATORY SYNCYTIAL VIRUS Not Detected (Not Detectd)
[2024-07-03] MEDS ORDERED: CLOB15CR4 TOP (17:52)
[2024-07-03] MEDS ORDERED: METO25TA6 PO (17:52)
[2024-07-03] MEDS ORDERED: AMLO5TAB88 PO (17:52)
[2024-07-03] MEDS ORDERED: P20 MT (17:52)
[2024-07-03] MEDS ORDERED: AZIT500T8 PO (17:52)
== END 2024-07-03 19:44 | disposition home or self-care (01) | DRG 189 ==
LOC: ER 11:14 → 5WST 12:43 → EDBEDREQ 13:01 → EDBEDREQTM 13:01
PROVIDERS: ADMIT Internal Medicine; ATTEND Internal Medicine
DX: J96.21 Acute and chronic respiratory failure with hypoxia (principal); J44.1 Chronic obstructive pulmonary disease with (acute) exacerbation; E87.29 Other acidosis; L23.9 Allergic contact dermatitis, unspecified cause; B02.9 Zoster without complications; I10 Essential (primary) hypertension; R10.10 Upper abdominal pain, unspecified; Z90.12 Acquired absence of left breast and nipple; Z99.81 Dependence on supplemental oxygen; Z85.3 Personal history of malignant neoplasm of breast
CPT/HCPCS: 36415; 36600; 71045; 80048; 80061; 80305; 81003; 82375; 82550; 82553; 82805; 82962; 83036; 83605; 83735; 83880; 84100; 84145; 84439; 84443; 84484; 85025; 85027; 86705; 87340; 87420; 87804; 93005; 93970; 94070; 94640; 94664; 99285; J0456; J0696; J1650; J1885; J2270; J2470; J2919; J3475